=== PATIENT | male | born 2000 | race Caucasian/White ===

== ENCOUNTER 2019-12-06 15:25 | Emergency (ER) | payer OTHER ==
[2019-12-06] MEDS ORDERED: AMOXICILLIN TR/POT CLAVULANATE 875-125 MG TAB PO ONE (16:28)
--- NOTE | 2019-12-06 16:28 | ER Document Report ---
ED Medical Screen (RME) - General Chief Complaint: Lip Injury Stated Complaint: FALL/LACERATION TO LIP Time Seen by Provider: 12/06/19 16:20 Mode of Arrival: Ambulatory Information source: Patient Notes: 18-year-old male presented to ED for complaint of facial injury. 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 He did not get 1 of his front bottom teeth knocking the tooth through his mouth he does have a lip laceration that crosses the vermilion border and needs to be sutured. He states his tetanus immunizations are up-to-date. He is alert oriented respirations regular nonlabored speaking in full sentences. I have treated him with a dose of Augmentin in the emergency room. I have greeted and performed a rapid initial assessment of this patient. A comprehensive ED assessment and evaluation of the patient, analysis of test results and completion of medical decision making process will be conducted by an additional ED providers. TRAVEL OUTSIDE OF THE [place] IN LAST 30 DAYS: No - Related Data Allergies/Adverse Reactions: No Known Allergies Allergy (Verified 12/06/19 16:13) Past Medical History - Social History Drug Abuse: Marijuana Physical Exam - Vital signs Vitals: Pulse Resp BP 111 H 18 166/80 H 12/06/19 15:30 12/06/19 15:30 12/06/19 15:30 Course - Vital Signs Vital signs: Temp Pulse Resp BP Pulse Ox 111 H 18 166/80 H 12/06/19 15:30 12/06/19 15:30 12/06/19 15:30
[2019-12-06] MEDS ORDERED: LIDOCAINE 4%/TETRACAINE 0.5%/EPI 0.18% 5 ML TOPICAL SOLN TOP ONE (18:43)
--- NOTE | 2019-12-06 18:52 | ER Document Report ---
HPI - HPI Time Seen by Provider: 12/06/19 16:20 Pain Level: Denies Notes: Patient is a 18-year-old male no significant past medical history with immunizations reportedly up-to-date who presents complaining of facial injury prior to arrival. Patient was working on putting a pipe in the ground and hit his face off the pipe. Patient states that his #11 canine popped out in its entirety and he also has a left lower lip laceration. This occurred about 4 hours ago. He did not lose consciousness or have any nausea/vomiting. He has been acting and behaving normally since then per mother. Denies drug allergies. Patient states that he feels well at this time. Denies any headache, fever, neck pain, changes in vision/speech/mentation/hearing, URI, sore throat, chest pain, palpitations, syncope, cough, shortness of breath, wheeze, dyspnea, abdominal pain, nausea/vomiting/diarrhea, urinary retention, dysuria, hematuria, loss of control of bowel or bladder, numbness/tingling, saddle anesthesia, muscle paralysis/weakness, or rash. - ROS Systems Reviewed and Negative: Yes All other systems reviewed and negative Past Medical History - General Information source: Patient - Social History Smoking Status: Former Smoker Drug Abuse: Marijuana Family History: Reviewed & Not Pertinent Patient has suicidal ideation: No Patient has homicidal ideation: No Vertical Provider Document - CONSTITUTIONAL Agree With Documented VS: Yes Notes: PHYSICAL EXAMINATION: GENERAL: Well-appearing, well-nourished and in no acute distress. A&O x4. Answers questions appropriately. HEAD: Atraumatic, normocephalic. No christianson sign. EYES: Pupils equal round and reactive to light, extraocular movements intact, sclera anicteric, conjunctiva are normal. ENT: EAC clear b/l. TM's intact b/l without erythema, fluid, or perforation. No hemotympanum. Nares patent and without discharge. oropharynx clear without exudates. No tonsilar hypertrophy or erythema. Moist mucous membranes. No sinus tenderness. Uvula midline. No palatine shift. No tongue protrusion. No respiratory compromise. Lower lip: there is an irregular 1cm superficial laceration noted. The vermilion is very difficult to fully assess due to the irregularity and how 1/2 of the lac runs through the vermilion. Mouth: + extracted in full #11. No obvious abscess or discharge noted. No facial swelling. NECK: Normal range of motion, supple without lymphadenopathy. No rigidity/meningismus. No midline tenderness. LUNGS: Breath sounds clear to auscultation bilaterally and equal. No wheezes rales or rhonchi. HEART: Regular rate and rhythm without murmurs, rubs, gallops. NEUROLOGICAL: Cranial nerves grossly intact. Normal speech, normal gait. PSYCH: Normal mood, normal affect. SKIN: see above - INFECTION CONTROL TRAVEL OUTSIDE OF THE [place] IN LAST 30 DAYS: No Course - Re-evaluation Re-evalutation: 12/06/19 18:54 I did speak with Oral Surgeon, Dr. Lino, who recommends leaving the tooth out as of this time. He does not believe the tooth will take and they usually have to remove them anyway. He may keep his appointment with his dentist tomorrow or schedule one with his office. 12/06/19 19:40 The pt's dentist stopped by and placed the tooth back in his mouth and has a f/u in the morning in his office. Patient is an afebrile, well-hydrated 18-year-old male who presents with a lip laceration and tooth avulsion. Vitals are acceptable without significant tachycardia, tachypnea, or hypoxia. PE is otherwise unremarkable for any focal neurological deficits. Patient is nontoxic-appearing and is tolerating p.o. without difficulty. Wound was thoroughly irrigated and cleansed. Vermilion border and wound edges approximate appropriately utilizing 2 simple rapid sutures. Due to the irregularity and awkwardness of the laceration near the vermilion, patient and mother are both aware that it may not be perfect; although, it looks right-on, and if there is concern later he may follow-up with a plastic surgeon. Patient's tetanus was reportedly up-to-date. I will send him home with a prescription for Augmentin. Recheck with your PCM in 5 days for suture removal. Return to the ED with any other worsening/concerning symptoms. Parent and patient in agreement. - Vital Signs Vital signs: Temp Pulse Resp BP Pulse Ox 98.2 F 111 H 18 166/80 H 12/06/19 16:26 12/06/19 15:30 12/06/19 15:30 12/06/19 15:30 Procedures - Laceration/Wound Repair Lower lip Wound length (cm): 1 Wound's Depth, Shape: Superficial, Irregular Laceration pre-procedure: Other - Chlorhexidine/saline Anesthetic type: Other - Topical LET Wound explored: Clean, No foreign body removed Irrigated w/ Saline (mLs): 80 Wound Repaired With: Sutures Suture Size/Type: 6:0, Ethilon Number of Sutures: 2 Post-procedure wound care: Sterile dressing applied Post-procedure NV exam normal: Yes Complications: No Discharge - Discharge Clinical Impression: Lip laceration Qualifiers: Encounter type: initial encounter Qualified Code(s): S01.511A - Laceration without foreign body of lip, initial encounter Tooth avulsion Qualifiers: Encounter type: initial encounter Qualified Code(s): S03.2XXA - Dislocation of tooth, initial encounter Condition: Stable Disposition: HOME, SELF-CARE Additional Instructions: Do not shower or bathe for 24 hours. After 24 hours you may shower but no submersion of the wound under water. Keep the original dressing on the wound for 24 hours unless the drainage soaks through. Change the dressing daily thereafter and keep the knots of the suture material clean from any dried discharge. You may leave the wound open to the air once there is no more discharge. Return to the ED and/or your PCM in 5 days for a recheck. Monitor for any signs of worsening pain or redness, purulent drainage, streaks, and/or fever. Follow-up with your dentist in the morning. Return to the ED if noticing any of the above symptoms or as needed. Take medications as directed. Your sutures will need to be removed in 5 days. Prescriptions: Amoxicillin/Potassium Clav [Augmentin 875-125 Tablet] 1 tab PO BID #20 tab Forms: Elevated Blood Pressure Referrals: [facility] [ACTIVE STAFF] - Follow up as needed
[2019-12-06 20:30] VITALS: BP 150/84
== END 2019-12-06 20:33 | disposition home or self-care (01) ==
LOC: ER 15:25
DX: S01.511A Laceration without foreign body of lip, initial encounter (principal); S03.2XXA Dislocation of tooth, initial encounter; W22.8XXA Striking against or struck by other objects, initial encounter; Y93.89 Activity, other specified; F12.10 Cannabis abuse, uncomplicated; Z87.891 Personal history of nicotine dependence
CPT/HCPCS: 99282; 12011; J3490 ×2